=== PATIENT | male | born 1935 | race Caucasian/White ===

== ENCOUNTER 2017-05-28 08:12 | Emergency (ER) | payer MEDICARE, MEDICAID ==
[2017-05-28 08:13] VITALS: BMI 22.3
[2017-05-28 08:24] VITALS: TEMP 98.6
[2017-05-28 09:41] VITALS: RESP 17; O2SAT 99
--- NOTE | 2017-05-28 09:41 | RAD ---
PROCEDURE: Left Hand Radiographs. HISTORY: fall r/o fx COMPARISON: None. FINDINGS: BONES: There is diffuse bone demineralization. There is no acute fracture or bone destruction. JOINTS: There is mild degenerative osteoarthrosis in the interphalangeal joints. SOFT TISSUES: There is mild of diffuse soft tissue swelling in the hand. OTHER FINDINGS: None. IMPRESSION: No acute fracture or dislocation. Soft tissue swelling in the hand. 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
--- NOTE | 2017-05-28 09:42 | RAD ---
PROCEDURE: Left Wrist Radiographs. HISTORY: fall r/o fx COMPARISON: None. FINDINGS: BONES: There is no acute fracture or bone destruction. Bone alignment is normal. There is diffuse bone demineralization. JOINTS: Normal. The proximal and distal carpal rows are maintained. SOFT TISSUES: Normal. OTHER FINDINGS: None. IMPRESSION: No acute displaced fracture or dislocation.
--- NOTE | 2017-05-28 09:58 | ED PDOC ---
Arrival/HPI - General Chief Complaint: Upper Extremity Problem/Injury Time Seen by Provider: 05/28/17 08:29 Historian: Patient - History of Present Illness Narrative History of Present Illness (Text): 05/28/17 09:50 A 81 year old male, whose past medical history includes hypertension, Parkinson' s, and Arthritis, presents to the emergency department complaining of left hand and wrist injury since last night. Patient reports missing his step and tripping, landing on left hand. He has difficulty walking at times because of his Manohar'sons Patient began to experience mild pain and swelling of left wrist. Also, patient mentions he has been placing ice pack on injury since then. However, he became concerned and arrived to ER for evaluation of symptoms. Patient denies of any numbness/weakness, head trauma, or any other injuries. PMD: Dr. Joiner Time/Duration: Other (last night) Symptom Onset: Sudden Symptom Course: Unchanged Activities at Onset: Rest, Light Context: Street Past Medical History - Provider Review Nursing Documentation Reviewed: Yes - Infectious Disease Hx of Infectious Diseases: None - Tetanus Immunization Tetanus Immunization: Unknown - Cardiac Hx Cardiac Disorders: Yes Hx Hypertension: Yes - Pulmonary Hx Respiratory Disorders: No Other/Comment: quit smoking 2 yrs ago - Neurological Hx Neurological Disorder: No Hx Parkinson's Disease: Yes - HEENT Hx HEENT Disorder: No - Renal Hx Renal Disorder: No - Endocrine/Metabolic Hx Endocrine Disorders: No - Hematological/Oncological Hx Blood Disorders: Yes (possible blood transfusion yrs ago) - Integumentary Hx Dermatological Disorder: No Other/Comment: sacrum slightly reddened - Musculoskeletal/Rheumatological Hx Arthritis: Yes - Gastrointestinal Hx Gastrointestinal Disorders: Yes (POOR APPETITE) - Genitourinary/Gynecological Hx Genitourinary Disorders: No - Psychiatric Hx Psychophysiologic Disorder: No Hx Emotional Abuse: No Hx Physical Abuse: No Hx Substance Use: No - Past Surgical History Past Surgical History: Non-Contributing - Surgical History Hx Cardiac Catheterization: Yes Hx Cholecystectomy: Yes Hx Coronary Stent: Yes (x1) - Anesthesia Hx Anesthesia Reactions: No Hx Malignant Hyperthermia: No - Suicidal Assessment Feels Threatened In Home Enviroment: No Family/Social History - Physician Review Nursing Documentation Reviewed: Yes Family/Social History: No Known Family HX Smoking Status: Former Smoker Hx Alcohol Use: No Hx Substance Use: No Hx Substance Use Treatment: No Allergies/Home Meds Allergies/Adverse Reactions: Allergies No Known Allergies Allergy (Verified 05/28/17 08:23) Home Medications: Home Meds Medication Instructions Recorded Confirmed Aspirin [Aspir 81] 81 mg PO DAILY 04/08/13 05/28/17 Lovastatin 10 mg PO DAILY 04/08/13 05/28/17 Amitriptyline [Elavil] 10 mg PO HS 04/30/14 05/28/17 Megestrol [Megace] 40 mg PO BID 04/30/14 05/28/17 oxyCODONE/Acetaminophen [Percocet 1 tab PO TID PRN 12/08/14 05/28/17 5/325 mg Tab] Folic Acid [Folic Acid] 1 mg PO DAILY 05/28/17 05/28/17 Gabapentin [Neurontin] 600 mg PO HS 05/28/17 05/28/17 Multivitamin/Iron/Folic Acid 1 each PO DAILY 05/28/17 05/28/17 [Centrum Adults Tablet] Omeprazole [Omeprazole] 40 mg PO DAILY 05/28/17 05/28/17 Review of Systems - Physician Review All systems were reviewed & negative as marked: Yes - Review of Systems Constitutional: absent: Other (no head tramua; no other injuries) Musculoskeletal: Other (left hand swelling and left wrist) Neurological: absent: Other (no numbess/weakness) Physical Exam Vital Signs Reviewed: Yes Vital Signs Temp Pulse Resp BP Pulse Ox 05/28/17 10:10 71 17 146/80 99 05/28/17 09:40 72 17 145/80 99 05/28/17 08:20 98.6 F 70 16 149/75 98 Temperature: Afebrile Blood Pressure: Normal Pulse: Regular Respiratory Rate: Normal Appearance: Positive for: Well-Appearing Pain Distress: None Mental Status: Positive for: Alert and Oriented X 3 - Systems Exam Head: Present: Atraumatic, Normocephalic Pupils: Present: PERRL Extroacular Muscles: Present: EOMI Conjunctiva: Present: Normal Mouth: Present: Moist Mucous Membranes Neck: Present: Normal Range of Motion Respiratory/Chest: Present: Clear to Auscultation, Good Air Exchange. No: Respiratory Distress, Accessory Muscle Use Cardiovascular: Present: Regular Rate and Rhythm, Normal S1, S2. No: Murmurs Abdomen: Present: Normal Bowel Sounds. No: Tenderness, Distention, Peritoneal Signs Back: Present: Normal Inspection Upper Extremity: Present: Normal ROM, NORMAL PULSES, Tenderness (diffused tenderness of left wrist and hand), Swelling (left wrist and left hand ecchymosis), Neurovascularly Intact, Capillary Refill < 2s Lower Extremity: Present: Normal Inspection. No: Edema Neurological: Present: GCS=15, CN II-XII Intact, Speech Normal Skin: Present: Warm, Dry, Normal Color. No: Rashes Psychiatric: Present: Alert, Oriented x 3, Normal Insight, Normal Concentration Medical Decision Making ED Course and Treatment: 05/28/17 09:35 Impression: 81 year old male with left hand and wrist injury. Physical exam shows swelling of wrist and hand, ecchymosis to left hand associated with diffused tenderness, good pulses and normal range of motion. Differential Diagnosis included but are not limited to: Contusion vs Sprian vs Fracture Plan: -- Hand X-Ray -- Wrist X-Ray -- Motrin -- Reassess and disposition Prior Visits: Notes and results from previous visits were reviewed. Patient was last seen in the emergency department on 01/28/2016 for right lower leg pain. Patient was admitted. Progress Notes: 05/28/2017 09:40 Hand X-ray IMPRESSION: No acute fracture or dislocation. Soft tissue swelling in the hand. 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 Dictator : Lisa Hoang MD 05/28/2017 09:41 Wrist X-ray IMPRESSION: No acute displaced fracture or dislocation. Dictator : Lisa Hoang MD 05/28/17 10:20 Left hand was placed in a thumb spica arm brace. Patient did not want a orthoglass splint. I explained the importance of the orthoglass but he said he is fine since it's not broken. He will f/u with orthopedics and his PMD in his home town because he is visitin. - RAD Interpretation Radiology Orders: 05/28/17 08:54 HAND LEFT 3 VIEWS ROUTINE [RAD] Stat WRIST, LEFT 3 VIEWS [RAD] Stat - Medication Orders Current Medication Orders: Discontinued Medications Ibuprofen (Motrin Tab) 600 mg PO STAT STA Stop: 05/28/17 08:55 Last Admin: 05/28/17 09:34 Dose: 600 mg Disposition/Present on Arrival - Present on Arrival Any Indicators Present on Arrival: No History of DVT/PE: No History of Uncontrolled Diabetes: No Urinary Catheter: No History of Decub. Ulcer: No History Surgical Site Infection Following: None - Disposition Have Diagnosis and Disposition been Completed?: Yes Diagnosis: Hand sprain Disposition: HOME/ ROUTINE Disposition Time: 10:20 Patient Plan: Discharge Condition: IMPROVED Discharge Instructions (ExitCare): Hand Sprain (ED) Additional Instructions: Mr Flores, thank you for letting us take care of you today. Your provider was Dr. Peña. You were treated for Hand Sprain / Contusion. The emergency medical care you received today was directed at your acute symptoms. If you were prescribed any medication, please fill it and take as directed. It may take several days for your symptoms to resolve. Return to the Emergency Department if your symptoms worsen, do not improve, or if you have any other problems. Please contact your doctor or call one of the physicians/clinics you have been referred to that are listed on the Patient Visit Information form that is included in your discharge packet. Bring any paperwork you were given at discharge with you along with any medications you are taking to your follow up visit. Our treatment cannot replace ongoing medical care by a primary care provider (PCP) outside of the emergency department. Thank you for allowing the [facility] team to be part of your care today. If you had an X-Ray or CT scan: A Radiologist will review the ED reading if any change in treatment is needed we will contact you. If you had a blood, urine, or wound culture: It will take several days for the results, if any change in treatment is needed we will contact you. If you had an STI test: It will take 48 hours for the results. Please call after 1 week if you have not heard back. Prescriptions: Naproxen 500 mg PO BID PRN #30 tab PRN Reason: Pain, Moderate (4-7) Referrals: Osmar Kim MD [Staff Provider] - Follow up with primary Lukasz Joseph MD [Staff Provider] - Follow up with primary Forms: [place] (Malay)
[2017-05-28 10:14] VITALS: BP 146/80; PULSE 71
== END 2017-05-28 10:27 | disposition home or self-care (01) ==
LOC: ED 08:12
DX: S63.92XA Sprain of unspecified part of left wrist and hand, initial encounter (principal); W01.0XXA Fall on same level from slipping, tripping and stumbling without subsequent striking against object, initial encounter; Y93.89 Activity, other specified; Y92.410 Unspecified street and highway as the place of occurrence of the external cause